=== PATIENT | female | born 1990 | race Caucasian/White ===

== ENCOUNTER 2019-10-10 15:06 | Emergency (ER) | payer BC ==
--- NOTE | 2019-10-10 15:35 | RAD ---
Exam:4 views left elbow HISTORY: Pain. Trauma. COMPARISON: None FINDINGS: No fracture, cortical irregularity or periosteal reaction. Preserved joint spaces. IMPRESSION: No fracture.
--- NOTE | 2019-10-10 15:44 | RAD ---
XR Chest 1 View Portable History: Trauma Comparison: None. Findings: Lungs are clear. No pneumothorax or effusion. Old right distal clavicular fracture. Cardiac silhouette and mediastinal contours are within normal limits. Impression: No acute intrathoracic abnormality.
--- NOTE | 2019-10-10 15:46 | RAD ---
XR Shoulder Lt 3 View STANDARD History: Trauma Comparison: None. Findings: Nondisplaced fracture through the greater tuberosity left humerus at the rotator cuff footp rint. Visualized left ribs are intact. Impression: Likely nondisplaced fracture through the greater tuberosity left humerus at the rotator c uff footprint.
== END 2019-10-10 16:50 | disposition home or self-care (01) ==
LOC: ERS 15:06
DX: S42.202A Unspecified fracture of upper end of left humerus, initial encounter for closed fracture (principal); V89.2XXA Person injured in unspecified motor-vehicle accident, traffic, initial encounter
CPT/HCPCS: 71045; G0390